=== PATIENT | female | born 1990 | race Caucasian/White ===

== ENCOUNTER 2024-11-18 18:07 | Inpatient (IN) | payer OTHER ==
[2024-11-18] MEDS ORDERED: Calcium Gluconate 10% 1 GM/10 ML SDV IV PRN (19:10)
[2024-11-18] MEDS ORDERED: Sodium Chloride 0.9% 2.5 ML Syringe FLUSH PRN ×2 (19:10→19:42)
[2024-11-18] MEDS ORDERED: Sodium Chloride 0.9% 10 ML Syringe FLUSH PRN ×2 (19:10→19:42)
[2024-11-18] MEDS ORDERED: Sodium Chloride 0.9% 20 ML SDV IV PRN ×2 (19:10→19:42)
[2024-11-18] MEDS: NIFEdipine 10 MG Cap PO ONE (19:17)
[2024-11-18] MEDS: Lactated Ringers 1,000 ML IV SCH (19:35)
[2024-11-18] MEDS: Magnesium Sulf/Wat 4 GM/100 mL 4 GM in Premix Bag 1 BAG IV ONE (19:35)
[2024-11-18 19:40] LABS: HEMATOCRIT 36.3 % (37.0-47.0); HEMOGLOBIN 12.5 g/dL (12.0-16.0); MEAN CORPUSCULAR HEMOGLOBIN 29.6 pg (28.0-32.0); MEAN CORPUSCULAR HGB CONC 34.4 g/dL (32.0-36.0); MEAN CORPUSCULAR VOLUME 85.8 fL (83.0-99.0); PLATELET COUNT,PLT 152 K/uL (150-400); RED BLOOD CELL COUNT 4.23 M/uL (4.10-5.30); WHITE BLOOD CELL COUNT,WBC 8.52 K/uL (3.9-11.3)
[2024-11-18] MEDS ORDERED: Methylergonovine 0.2 MG/1 ML Amp IM PRN (19:42)
[2024-11-18] MEDS ORDERED: Carboprost Tromethamine 250 MCG/1 mL Vial IM PRN (19:42)
[2024-11-18] MEDS ORDERED: Misoprostol 200 MCG Tab PO PRN (19:42)
[2024-11-18] MEDS ORDERED: Lidocaine 1% 50 ML MDV INJECT PRN (19:42)
[2024-11-18] MEDS ORDERED: Water For Irrigation,Sterile 1,000 ML Container IRR PRN (19:42)
[2024-11-18] MEDS ORDERED: Oxytocin/0.9 % Sodium Chloride 30 UNIT/500 ML BAG IV SCH (19:45)
[2024-11-18] MEDS ORDERED: Terbutaline 1 MG/ML SDV SUBCUT PRN (19:48)
[2024-11-18 20:00] LABS: A/G RATIO 0.9 (0.9-1.6); ALANINE AMINOTRANSFERASE,ALT 36 IU/L (14-63); ALBUMIN 2.7 g/dL (3.4-5.0); ALKALINE PHOSPHATASE 125 U/L (46-116); ASPARTATE AMNIOTRANSFERASE,AST 22 IU/L (15-37); BILIRUBIN TOTAL 0.2 mg/dL (0.2-1.0); BLOOD UREA NITROGEN,BUN 7 mg/dL (7.0-18.0); CALCIUM 8.9 mg/dL (8.5-10.1); CARBON DIOXIDE,CO2 19.7 mmol/L (21.0-32.0); CHLORIDE,CL 102 mmol/L (98-107); CREATININE 0.6 mg/dL (0.6-1.0); GLUCOSE RANDOM 137 mg/dL (74-106); POTASSIUM,K 3.7 mmol/L (3.5-5.1); PROTEIN TOTAL,TP 5.7 g/dL (6.4-8.2); SODIUM,NA 135 mmol/L (136-145); URIC ACID 4.4 mg/dL (2.6-7.2)
[2024-11-18] MEDS: Magnesium Sulf/Wat 20 GM/500mL 20 GM/500 ML BAG IV SCH (20:00)
[2024-11-18 20:02] LABS: ESTIMATED GFR 119 mL/min (>60)
[2024-11-18] MEDS: Labetalol 100 MG/20 ML MDV IVPUSH ONE ×2 (20:29→20:45)
[2024-11-18] MEDS: Misoprostol 25 MCG (1/4 of 100 MCG) Tab VAG PRN (21:12)
[2024-11-18 21:29] LABS: APPEARANCE,URINE CLEAR; BILIRUBIN,URINE NEGATIVE (NEGATIVE); COLOR,URINE YELLOW; GLUCOSE,URINE 100 mg/dL (NEGATIVE); KETONES,URINE NEGATIVE (NEGATIVE); LEUKOCYTE ESTERASE,URINE NEGATIVE (NEGATIVE); NITRITE,URINE NEGATIVE (NEGATIVE); OCCULT BLOOD,URINE NEGATIVE (NEGATIVE); PROTEIN,URINE NEGATIVE (NEGATIVE); UROBILINOGEN,URINE 0.2 EU/dL (<2.0)
[2024-11-18 21:46] LABS: BACTERIA,URINE FEW (NEGATIVE); MUCUS,URINE LIGHT (NONE-MOD); RBC,URINE 0-2 (0-2/HPF); SQUAMOUS EPITHELIAL CELLS,UR MODERATE; WBC,URINE 0-2 (0-5/HPF)
[2024-11-18 22:46] LABS: CREATININE,URINE RAND 50.6 mg/dL; PROTEIN CREATININE RATIO,URINE 0.4; PROTEIN,URINE RANDOM 17.8 mg/dL (<11.9)
[2024-11-19] MEDS: Butorphanol 2 MG/ML SDV IVPUSH PRN (01:21)
[2024-11-19] MEDS: Ondansetron 4 MG/2 ML SDV IVPUSH PRN (02:40)
[2024-11-19] MEDS ORDERED: ePHEDrine 50 MG/ML SDV IVPUSH PRN (06:54)
[2024-11-19] MEDS ORDERED: dexmedeTOMIDine HCl 200 MCG/2 ML SDV EPIDUR SCH (07:00)
[2024-11-19] MEDS ORDERED: NIFEdipine 30 MG Tab.ER PO ONE (08:17)
[2024-11-19] MEDS: Pantoprazole 40 MG in Sodium Chloride 0.9% 10 ML IVPUSH ONE (08:46)
[2024-11-19] MEDS: NIFEdipine 10 MG Cap PO ONE (08:54)
[2024-11-19] MEDS: Calcium Carbonate 500 MG Tab.Chew PO PRN (08:54)
[2024-11-19] MEDS: Betamethasone Acetate/Betamethasone Sod Phosphate 6 MG/1 ML MDV IM ONE (08:56)
[2024-11-19] MEDS: Acetaminophen 500 MG Tab PO PRN (09:31)
[2024-11-19] MEDS: Oxytocin/0.9 % Sodium Chloride 30 UNIT/500 ML BAG IV SCH (09:31)
[2024-11-19] MEDS: NIFEdipine 10 MG Cap ONE (12:05)
[2024-11-19] MEDS: Phenylephrine HCl In 0.9% NaCl 1 MG/10 ML Syringe IVPUSH PRN (12:34)
[2024-11-19] MEDS: Ropivacaine HCl/PF 400 MG in Premix Bag 1 BAG EPIDUR SCH (12:36)
[2024-11-19 13:38] LABS: APPEARANCE,URINE CLEAR; BILIRUBIN,URINE NEGATIVE (NEGATIVE); COLOR,URINE YELLOW; GLUCOSE,URINE NEGATIVE (NEGATIVE); KETONES,URINE 15 mg/dL (NEGATIVE); LEUKOCYTE ESTERASE,URINE NEGATIVE (NEGATIVE); NITRITE,URINE NEGATIVE (NEGATIVE); OCCULT BLOOD,URINE TRACE-INTACT (NEGATIVE); PH,URINE 5.5 (5.0-8.0); PROTEIN,URINE NEGATIVE (NEGATIVE); UROBILINOGEN,URINE 0.2 EU/dL (<2.0)
[2024-11-19 13:46] LABS: BACTERIA,URINE FEW (NEGATIVE); EPITHELIAL CELLS,URINE OCCASIONAL (NONE-FEW); RBC,URINE 0-2 (0-2/HPF); WBC,URINE 0-2 (0-5/HPF)
[2024-11-19 13:54] LABS: CREATININE,URINE RAND 33.4 mg/dL; PROTEIN CREATININE RATIO,URINE 0.3; PROTEIN,URINE RANDOM 11.2 mg/dL (<11.9)
[2024-11-19] MEDS ORDERED: Bupivacaine 0.5% 30 ML SDV ONE (22:18)
[2024-11-19] MEDS ORDERED: fentaNYL 100 MCG/2 ML SDV ONE (22:18)
[2024-11-19] MEDS ORDERED: Ondansetron 4 MG/2 ML SDV ONE ×2 (22:29→22:54)
[2024-11-19] MEDS ORDERED: Dexamethasone 4 MG/ML 5 ML MDV ONE (22:29)
[2024-11-19] MEDS ORDERED: Oxytocin 10 Units/1 ML SDV ONE (22:29)
[2024-11-19] MEDS ORDERED: ceFAZolin 2 GM Vial ONE (22:33)
[2024-11-19] MEDS ORDERED: Metoclopramide 10 MG/2 ML SDV ONE (22:34)
[2024-11-19] MEDS ORDERED: Morphine PF 10 MG/10 ML SDV ONE (22:52)
[2024-11-19] MEDS ORDERED: Ropivacaine 0.5% 5 MG/ML 30 ML SDV ONE (22:57)
[2024-11-19] MEDS ORDERED: Midazolam 1 MG/ML 2 ML SDV ONE (22:59)
[2024-11-19] MEDS ORDERED: Ketorolac 30 MG/ML SDV IVPUSH SCH (23:45)
[2024-11-19] MEDS ORDERED: fentaNYL 100 MCG/2 ML SDV IVPUSH PRN (23:49)
[2024-11-19] MEDS ORDERED: Albuterol 0.083% 2.5 MG/3 ML Neb Soln NEB PRN (23:49)
[2024-11-19] MEDS ORDERED: fentaNYL 50 MCG/ML SDV IVPUSH PRN (23:49)
[2024-11-19] MEDS ORDERED: Metoclopramide 10 MG/2 ML SDV IVPUSH PRN (23:49)
[2024-11-19] MEDS ORDERED: Nalbuphine 10 MG/1 ML Vial IVPUSH PRN (23:49)
[2024-11-19] MEDS ORDERED: Naloxone 0.4 MG/ML SDV IVPUSH PRN (23:49)
[2024-11-19] MEDS ORDERED: diphenhydrAMINE 50 MG/ML SDV IVPUSH PRN (23:49)
[2024-11-19] MEDS ORDERED: Ondansetron 4 MG/2 ML SDV IVPUSH PRN ×2 (23:49)
[2024-11-19] MEDS ORDERED: HYDROmorphone 1 MG/ML Syringe IVPUSH PRN (23:49)
[2024-11-19] MEDS ORDERED: Phenylephrine HCl In 0.9% NaCl 1 MG/10 ML Syringe IVPUSH PRN (23:49)
[2024-11-19] MEDS ORDERED: Morphine 2 MG/ML SYRINGE IVPUSH PRN (23:49)
[2024-11-20] MEDS ORDERED: Naloxone 0.4 MG/ML SDV IVPUSH PRN (00:17)
[2024-11-20] MEDS ORDERED: Lanolin 100% Cream 7 GM Tube TOP PRN (00:17)
[2024-11-20] MEDS ORDERED: Bisacodyl 10 MG Supp RECTAL PRN (00:17)
[2024-11-20] MEDS ORDERED: Oxytocin 10 Units/1 ML SDV IM PRN (00:17)
[2024-11-20] MEDS ORDERED: Misoprostol 200 MCG Tab RECTAL PRN (00:17)
[2024-11-20] MEDS ORDERED: Methylergonovine 0.2 MG/1 ML Amp IM PRN (00:17)
[2024-11-20] MEDS ORDERED: Lactated Ringers 1,000 ML IV SCH (00:30)
[2024-11-20 00:37] LABS: PH,UMBILICAL ARTERIAL 7.16 (7.18-7.38); PH,UMBILICAL VENOUS 7.21 (7.25-7.45)
[2024-11-20] MEDS: Ketorolac 30 MG/ML SDV IVPUSH SCH ×2 (01:00→07:38)
[2024-11-20] MEDS: Ondansetron 4 MG/2 ML SDV IVPUSH PRN (03:00)
[2024-11-20] MEDS: Metoclopramide 10 MG/2 ML SDV IVPUSH ONE (03:30)
[2024-11-20 06:57] LABS: A/G RATIO 0.9 (0.9-1.6); ALBUMIN 2.7 g/dL (3.4-5.0); BILIRUBIN TOTAL 0.3 mg/dL (0.2-1.0); CALCIUM 7.5 mg/dL (8.5-10.1); CARBON DIOXIDE,CO2 20.4 mmol/L (21.0-32.0); CREATININE 0.7 mg/dL (0.6-1.0); EST CRCL DRUG DOSING (CG) 83.84 mL/min; POTASSIUM,K 4.6 mmol/L (3.5-5.1); PROTEIN TOTAL,TP 5.7 g/dL (6.4-8.2)
[2024-11-20] MEDS: NIFEdipine 10 MG Cap PO ONE (07:33)
[2024-11-20] MEDS: Docusate Sodium 100 MG Cap PO SCH (07:39)
[2024-11-20] MEDS: diphenhydrAMINE 50 MG/ML SDV IVPUSH PRN (09:07)
[2024-11-20] MEDS: Sodium Chloride 0.9% 1,000 ML IV SCH (10:30)
[2024-11-20 16:49] LABS: A/G RATIO 0.9 (0.9-1.6); ALBUMIN 2.7 g/dL (3.4-5.0); BILIRUBIN TOTAL 0.2 mg/dL (0.2-1.0); CALCIUM 6.9 mg/dL (8.5-10.1); CARBON DIOXIDE,CO2 20.6 mmol/L (21.0-32.0); CREATININE 0.9 mg/dL (0.6-1.0); EST CRCL DRUG DOSING (CG) 65.21 mL/min; MAGNESIUM 6.4 mg/dL (1.8-2.4); POTASSIUM,K 4.4 mmol/L (3.5-5.1); PROTEIN TOTAL,TP 5.8 g/dL (6.4-8.2)
[2024-11-20] MEDS: Labetalol 100 MG Tab PO SCH (18:27)
[2024-11-21 06:16] LABS: HEMOGLOBIN 10.7 g/dL (12.0-16.0)
[2024-11-21 06:38] LABS: A/G RATIO 0.9 (0.9-1.6); ALBUMIN 2.4 g/dL (3.4-5.0); BILIRUBIN TOTAL 0.2 mg/dL (0.2-1.0); CALCIUM 7.4 mg/dL (8.5-10.1); CARBON DIOXIDE,CO2 22.7 mmol/L (21.0-32.0); CREATININE 0.8 mg/dL (0.6-1.0); EST CRCL DRUG DOSING (CG) 73.36 mL/min; PROTEIN TOTAL,TP 5.2 g/dL (6.4-8.2)
[2024-11-21] MEDS: Acetaminophen/oxyCODONE 325-5 MG Tab PO PRN (10:45)
[2024-11-21] MEDS: Ibuprofen 800 MG Tab PO PRN (10:45)
[2024-11-21] MEDS: Simethicone 80 MG Tab.Chew PO ONE (16:40)
[2024-11-21] MEDS: Labetalol 100 MG/20 ML MDV IVPUSH PRN (19:03)
[2024-11-21] MEDS: oxyCODONE 5 MG Tab PO PRN (19:34)
[2024-11-21] MEDS: hydrALAZINE 20 MG/ML SDV IVPUSH STA (19:40)
[2024-11-21] MEDS: Magnesium Sulf/Wat 4 GM/100 mL 4 GM in Premix Bag 1 BAG IV ONE (19:52)
[2024-11-21] MEDS: Simethicone 80 MG Tab.Chew ONE (20:24)
[2024-11-21 20:37] LABS: BASOPHILS ABSOLUTE AUTO 0.03 K/uL (0.00-0.20); BASOPHILS PERCENT AUTO 0.3 % (0.0-1.0); EOSINOPHILS ABSOLUTE AUTO 0.17 K/uL (0.00-0.45); EOSINOPHILS PERCENT AUTO 1.5 % (0.0-6.0); HEMATOCRIT 31.7 % (37.0-47.0); HEMOGLOBIN 10.7 g/dL (12.0-16.0); IMMATURE GRAN ABSOLUTE AUTO 0.05 K/uL (0.00-0.05); IMMATURE GRAN PERCENT AUTO 0.5 % (0.0-0.4); LYMPHOCYTES ABSOLUTE AUTO 2.45 K/uL (1.00-4.80); LYMPHOCYTES PERCENT AUTO 22.3 % (24.0-44.0); MEAN CORPUSCULAR HEMOGLOBIN 29.6 pg (28.0-32.0); MEAN CORPUSCULAR HGB CONC 33.8 g/dL (32.0-36.0); MEAN CORPUSCULAR VOLUME 87.8 fL (83.0-99.0); MONOCYTES ABSOLUTE AUTO 0.95 K/uL (0.00-0.80); MONOCYTES PERCENT AUTO 8.6 % (0.0-8.0); NEUTROPHILS ABSOLUTE AUTO 7.36 K/uL (1.80-7.70); NEUTROPHILS PERCENT AUTO 66.8 % (41.0-71.0); PLATELET COUNT,PLT 158 K/uL (150-400); RED BLOOD CELL COUNT 3.61 M/uL (4.10-5.30); WHITE BLOOD CELL COUNT,WBC 11.01 K/uL (3.9-11.3)
[2024-11-21 21:18] LABS: A/G RATIO 0.8 (0.9-1.6); ALBUMIN 2.4 g/dL (3.4-5.0); BILIRUBIN TOTAL 0.2 mg/dL (0.2-1.0); CALCIUM 8.5 mg/dL (8.5-10.1); CARBON DIOXIDE,CO2 22.9 mmol/L (21.0-32.0); CREATININE 0.7 mg/dL (0.6-1.0); EST CRCL DRUG DOSING (CG) 83.84 mL/min; PROTEIN TOTAL,TP 5.3 g/dL (6.4-8.2)
[2024-11-21] MEDS: Labetalol 100 MG Tab PO SCH (22:59)
[2024-11-22] MEDS: Labetalol 100 MG/20 ML MDV ONE (00:05)
[2024-11-22] MEDS: oxyCODONE 5 MG Tab PO PRN (03:17)
[2024-11-22 06:05] LABS: A/G RATIO 0.7 (0.9-1.6); ALBUMIN 2.3 g/dL (3.4-5.0); BILIRUBIN TOTAL 0.3 mg/dL (0.2-1.0); CALCIUM 7.6 mg/dL (8.5-10.1); CREATININE 0.7 mg/dL (0.6-1.0); EST CRCL DRUG DOSING (CG) 83.84 mL/min; POTASSIUM,K 4.1 mmol/L (3.5-5.1); PROTEIN TOTAL,TP 5.4 g/dL (6.4-8.2)
[2024-11-22] MEDS: Labetalol 100 MG Tab PO SCH ×2 (06:50→16:52)
[2024-11-22] MEDS ORDERED: Labetalol 100 MG Tab PO SCH (14:00)
[2024-11-23] MEDS: Labetalol 100 MG Tab PO SCH (00:59)
[2024-11-23 06:15] LABS: HEMATOCRIT 34.8 % (37.0-47.0); HEMOGLOBIN 11.4 g/dL (12.0-16.0); MEAN CORPUSCULAR HEMOGLOBIN 29.2 pg (28.0-32.0); MEAN CORPUSCULAR HGB CONC 32.8 g/dL (32.0-36.0); MEAN CORPUSCULAR VOLUME 89.2 fL (83.0-99.0); MEAN PLATELET VOLUME 9.8 fL (9.4-12.3); PLATELET COUNT,PLT 182 K/uL (150-400)
[2024-11-23 06:39] LABS: ALBUMIN 2.7 g/dL (3.4-5.0); BILIRUBIN TOTAL 0.4 mg/dL (0.2-1.0); CALCIUM 8.5 mg/dL (8.5-10.1); CARBON DIOXIDE,CO2 23.9 mmol/L (21.0-32.0); CREATININE 0.8 mg/dL (0.6-1.0); EST CRCL DRUG DOSING (CG) 73.36 mL/min; POTASSIUM,K 4.3 mmol/L (3.5-5.1); PROTEIN TOTAL,TP 5.3 g/dL (6.4-8.2)
== END 2024-11-23 18:30 | disposition home or self-care (01) | DRG 787 ==
LOC: MW.OB 18:07 → MW.OBCHECK 18:07 → MW.OB 19:42 → MW.OBCHECK 19:42 → MW.MS 11-19 09:43 → MW.OB 11-19 09:50 → OBSVTOIN 11-19 23:00 → MW.OB 11-20 04:30
PROVIDERS: ADMIT Obstetrics & Gynecology Gynecology; ATTEND Obstetrics & Gynecology Obstetrics
PROC: 3E0DXGC Introduction of Other Therapeutic Substance into Mouth and Pharynx, External Approach (ICD-10-PCS; 2024-11-19)
PROC: 10D00Z1 Extraction of Products of Conception, Low, Open Approach (ICD-10-PCS; principal; 2024-11-19 23:00)
DX: O13.4 Gestational [pregnancy-induced] hypertension without significant proteinuria, complicating childbirth (principal); E87.1 Hypo-osmolality and hyponatremia; O14.94 Unspecified pre-eclampsia, complicating childbirth; O99.344 Other mental disorders complicating childbirth; O61.0 Failed medical induction of labor; O99.283 Endocrine, nutritional and metabolic diseases complicating pregnancy, third trimester; O24.420 Gestational diabetes mellitus in childbirth, diet controlled; R79.9 Abnormal finding of blood chemistry, unspecified; Z3A.36 36 weeks gestation of pregnancy; Z88.0 Allergy status to penicillin; Z37.0 Single live birth; Z79.899 Other long term (current) drug therapy; Z79.82 Long term (current) use of aspirin; Z88.8 Allergy status to other drugs, medicaments and biological substances
CPT/HCPCS: 01967; 01968; 36415; 51702; 59025; 59514; 64999; 76819; 76819-26; 80053; 81001; 82570; 82803; 82947; 83735; 84156; 84550; 85014; 85018; 85025; 85027; 86592; 86850; 86900; 86901; A9270-GY; J0360; J0595; J0665; J0690; J0702; J1100; J1200; J1885; J1920; J2250; J2274; J2371; J2405; J2470; J2590; J2765; J2795; J3010; J3475; J7030; J7120